=== PATIENT | female | born 1975 | race Caucasian/White ===

== ENCOUNTER 2022-12-26 08:20 | Inpatient (IN) | payer SELFPAY ==
[2022-12-26] VITALS (13 sets, daily range): BP systolic 100–136; BP diastolic 41–72; PULSE 69–91; RESP 15–18; TEMP 36.9–38.1; O2SAT 91–98; BMI 22.6
--- NOTE | 2022-12-26 09:00 | ED_ITS ---
HPI - Female Genitourinary General: Chief complaint: Urogenital-Female Stated complaint: kidney problems Time Seen by Provider: 12/26/22 09:00 History of Present Illness: 47-year-old lady without significant past medical history presented to the emergency department for flank pain and abdominal pain with nausea and vomiting as well as fevers. Onset of symptoms approximately 3 days ago and presented to outside ER last night diagnosed with pyelonephritis. Patient denies urinary s ymptoms however I guess urine was concerning for urinary tract infection with leukocytosis. Somewhat improved with ED treatment and given antibiotics. Despite this symptoms have worsened. No other specific changes in health, exacerbating, or alleviating factors identified. Onset (ago): day(s) Location of symptoms: low back and flank Severity scale (1-10): 8 Associated symptoms: Reports fevers/chills, nausea and other; Deny vaginal bleeding or vaginal discharge Date of Last Menstrual Period: 11/26/22 Review of Systems General: Reports: 10 or more systems reviewed and unremarkable except in HPI and below GI: Reports: nausea : Denies: vaginal discharge [facility] ED PFSH: Medical History Chronic neck pain Surgical History H/O: hysterectomy Family History Mother CAD (coronary artery disease) Father Emphysema lung Social History Smoking and tobacco status: current every day smoker Alcohol intake: never Substance/Drug Use: current Substance/Drug use type: Marijuana Female Reproductive History: Date of last menstrual period: 11/26/22 Physical Exam Const: COMMON NORMALS: alert GENERAL APPEARANCE: cooperative and well developed HENMT: COMMON NORMALS: normocephalic and atraumatic HEAD & SCALP: normocephalic and atraumatic Eye: COMMON NORMALS: conjunctivae normal CONJUNCTIVA: Yes conjunctivae normal SCLERA: sclerae normal Neck/C-Spine: COMMON NORMALS: supple GENERAL: Yes trachea midline Resp: COMMON NORMALS: normal respiratory effort EFFORT & INSPECTION: Yes able to speak in complete sentences Cardio: COMMON NORMALS: regular rate and regular rhythm RATE: regular rate RHYTHM: regular rhythm GI: COMMON NORMALS: Soft to palpation PALPATION: Yes Soft to palpation, Yes Tenderness to palpation present (GI), No Guarding due to palpation present (GI) and No Rigid due to palpation : SPECULUM EXAM - VAGINA: No vaginal bleeding OB/EXTERNAL & SPECULUM: No vaginal bleeding Extremity: GENERAL: Yes normal exam except as noted and No edema Neuro: COMMON NORMALS: moves all extremities SENSORIUM/ORIENTATION: Yes alert and No Orientation impaired Psych: COMMON NORMALS: mental status grossly normal and Normal thought process present THOUGHT PROCESS: Normal thought process present Course Vital Signs: Vital signs: Vital Signs Temperature 98.4 F 12/28/22 12:24 Pulse Rate 59 L 12/28/22 12:24 Respiratory Rate 18 12/28/22 12:24 Blood Pressure 114/72 12/28/22 12:24 Pulse Oximetry 98 12/28/22 12:24 Oxygen Delivery Me thod Room Air 12/28/22 11:16 MDM - Female Medical Decision Making 47-year-old lady with prior diagnosis of pyelonephritis presenting with worsening symptoms. Somewhat ill and uncomfortable on exam however nontoxic. Abdominal tenderness in the right lower quadrant and flank without evidence of acute surgical abdomen. Labs with leukocytosis, microcytic anemia. Metabolic panel with preserved renal function. Urinalysis pending at time of admission. Given abdominal exam imaging is appropriate. Consistent with pyelonephritis. Incidental findings noted. Treated with analgesia, antiemetic, fluids, antibiotics. Mild improvement however still clinically has moderate to severe pyelonephritis and requires inpatient admission for failed outpatient therapy. The results of ED evaluation were discussed with the patient including plan for admission due to requirement for level of care not available if discharged to prevent significant worsening/deterioration. Patient agreeable with plan. Discussed with hospitalist service who was agreeable to admit patient. Medical Records I reviewed the patient's medical records. Lab Data I reviewed the patient's lab results. 12/28/22 05:07 12/28/22 05:07 Laboratory Results WBC 22.9 10^3/uL (4.0-10.0) H 12/26/22 09:07 RBC 5.24 10^6/uL (4.1-5.3) 12/26/22 09:07 Hgb 10.9 g/dL (11.5-15.3) L 12/26/22 09:07 Hct 34.1 % (37.0-47.0) L 12/26/22 09:07 MCV 65.1 fl (81-99) L 12/26/22 09:07 MCH 20.8 pg (28.0-34.0) L 12/26/22 09:07 MCHC 32.0 g/dL (30.0-36.0) 12/26/22 09:07 RDW 14.5 % (12.1-15.1) 12/26/22 09:07 Plt Count 364 10^3/cmm (130-400) 12/26/22 09:07 MPV 9.9 fL (7.4-10.4) 12/26/22 09:07 Neut % (Auto) 86.1 % 12/26/22 09:07 Lymph % (Auto) 5.2 % 12/26/22 09:07 [place] % (Auto) 7.3 % 12/26/22 09:07 Eos % (Auto) 0.0 % 12/26/22 09:07 Baso % (Auto) 0.4 % 12/26/22 09:07 Neut # (Auto) 19.72 10^3/uL (1.8-7.7) H 12/26/22 09:07 Lymph # (Auto) 1.2 10^3/uL (0.8-4.8) 12/26/22 09:07 [place] # (Auto) 1.7 10^3/uL (0.2-0.9) H 12/26/22 09:07 Eos # (Auto) 0.0 10^3/uL (0.0-0.8) 12/26/22 09:07 Baso # (Auto) 0.1 10^3/uL (0.0-0.1) 12/26/22 09:07 Nucleated RBC % (auto) 0 % 12/26/22 09:07 Nucleated RBCs # 0.0 /100WBC 12/26/22 09:07 Sodium 136 mmol/L (136-145) 12/26/22 09:07 Potassium 3.7 mmol/L (3.5-5.1) 12/26/22 09:07 Chloride 105 mmol/L (98-107) 12/26/22 09:07 Carbon Dioxide 19 mmol/L (22-29) L 12/26/22 09:07 Anion Gap 15.7 (5-19) 12/26/22 09:07 BUN 11 mg/dL (6-20) 12/26/22 09:07 Creatinine 0.6 mg/dL (0.5-0.9) 12/26/22 09:07 GFR Calculation 107.6 mL/min (90-130) 12/26/22 09:07 Glucose 109 mg/dL (65-115) 12/26/22 09:07 Calculated Osmolality 282 mOsm/kg (285-295) L 12/26/22 09:07 Lactic Acid 0.8 mmol/L (0.5-2.2) 12/26/22 09:07 Calcium 8.2 mg/dL (8.5-10.5) L 12/26/22 09:07 Total Bilirubin 0.5 mg/dL (0.15-1.2) 12/26/22 09:07 AST 10 U/L (0-32) 12/26/22 09:07 ALT 12 U/L (0-33) 12/26/22 09:07 Alkaline Phosphatase 80 U/L (35-105) 12/26/22 09:07 C-Reactive Protein 111.7 mg/L (0.0-4.9) H 12/26/22 09:07 Total Protein 6.7 g/dL (6.6-8.7) 12/26/22 09:07 Albumin 3.9 g/dL (3.5-5.2) 12/26/22 09:07 Globulin 2.8 g/dL (1.3-4.6) 12/26/22 09:07 Procalcitonin 0.10 ng/mL (0-0.5) 12/26/22 09:07 TSH 0.60 uIU/mL (0.27-4.20) 12/26/22 09:07 HCG, Qual Negative (Negative) 12/26/22 09:07 Urine Color Yellow (Yellow) 12/26/22 11:55 Urine Appearance Hazy (CLEAR) A 12/26/22 11:55 Urine pH 5 (5-7) 12/26/22 11:55 Ur Specific [place] 1.005 (1.005-1.030) 12/26/22 11:55 Urine Protein Trace (Negative) 12/26/22 11:55 Urine Glucose (UA) Norm (Normal) 12/26/22 11:55 Urine Ketones 2+ (Negative) H 12/26/22 11:55 Urine Blood 2+ (Negative) H 12/26/22 11:55 Urine Nitrate Negative (Negative) 12/26/22 11:55 Urine Bilirubin Neg (Negative) 12/26/22 11:55 Urine Urobilinogen Norm mg/dL (Negative) 12/26/22 11:55 Ur Leukocyte Esterase Trace (Negative) H 12/26/22 11:55 Urine RBC 5-10 /hpf (0-2) H 12/26/22 11:55 Urine WBC 5-10 /hpf (0-5) H 12/26/22 11:55 Ur Squamous Epith Cells 25-40 /hpf (0-5) H 12/26/22 11:55 Amorphous Sediment Not Reportable 12/26/22 11:55 Urine Bacteria Trace /hpf (NONE) 12/26/22 11:55 Urine Mucus 1+ /hpf 12/26/22 11:55 Discharge Plan Discharge Patient Disposition: Placed in Observation Admit Provider: Haja Melendrez Clinical Impression: Pyelonephritis Discharge Diet: Cardiac Discharge Activity: Resume usual activity Coding Level of Care Code ED Anatomic Pathologist for Sylvester Preston
--- NOTE | 2022-12-26 09:35 | CT_ITS ---
WS: [id number] CT ABDOMEN PELVIS TECHNIQUE: Contrast-enhanced CT of the abdomen and pelvis with coronal and sagittal reformatted image s. CLINICAL INFORMATION: RLQ/flank pain COMPARISON: None. DLP: 402.[address] scans at [facility] use at least one of these dose optimization techniques: automated e xposure control; mA and/or kV adjustment per patient size (includes targeted exams where dose is matc hed to clinical indication); or iterative reconstruction. FINDINGS: Hepatomegaly. Portal vein and splenic vein are patent. Normal spleen. Normal GE junction. Lung bases are well aerated. Normal pancreatic parenchymal enhancement. Normal caliber abdominal aorta. Mild aortic calcification. Adrenal glands are normal. Diffuse patchy heterogeneous enhancement involving the right kidney suspi cious for pyelonephritis. Renal pelvis urothelial enhancement. Recommend correlation for UTI. Peripheral enhancing right corpus luteum cyst measuring 2.5 x 2.2 cm. Left ovarian cyst measuring 2.8 x 2.3 cm. Prominent myometrial enhancement is likely physiologic. Thickening of the endometrium like ly physiologic in a patient of this age. Small amount of free fluid in the cul-de-sac. Unilateral right L5-S1 pars defects. IMPRESSION: 1. Heterogeneous right renal parenchymal enhancement suspicious for pyelonephritis. Correlation for UTI. 2. Peripheral enhancing right corpus luteum cyst and simple appearing left ovarian cyst described ab ove with a small amount of free fluid in the cul-de-sac. 3. Prominent myometrial enhancement with endometrial thickening likely physiologic in a patient this age. 4. Unilateral chronic right pars defect. No significant anterolisthesis.
[2022-12-26] MEDS: ondansetron 2 mg/ML SDV 2 mL 4 MG IVP ×2 (09:37→19:16)
[2022-12-26] MEDS: morphine 4 mg/mL SDV 1 mL IVP (09:37)
[2022-12-26] MEDS: sodium chloride 0.9% 1,000 ML 999 ML IV (09:38)
[2022-12-26 09:48] LABS: Basophils # 0.1 10^3/uL (0.0-0.1); Basophils % 0.4 %; Hematocrit 34.1 % (37.0-47.0); Hemoglobin 10.9 g/dL (11.5-15.3); Lymphocytes # 1.2 10^3/uL (0.8-4.8); Lymphocytes % 5.2 %; Mean Corpuscular Hemoglobin 20.8 pg (28.0-34.0); Mean Corpuscular Volume 65.1 fl (81-99); Mean Platelet Volume 9.9 fL (7.4-10.4); Monocytes # 1.7 10^3/uL (0.2-0.9); Monocytes % 7.3 %; Neutrophils # 19.72 10^3/uL (1.8-7.7); Neutrophils % 86.1 %; Nucleated Red Blood Cells % 0 %; Platelet Count 364 10^3/cmm (130-400); Red Blood Count 5.24 10^6/uL (4.1-5.3); Red Cell Distribution Width 14.5 % (12.1-15.1); White Blood Count 22.9 10^3/uL (4.0-10.0)
[2022-12-26 10:07] LABS: Lactic Sepsis W/Reflex 0.8 mmol/L (0.5-2.2)
[2022-12-26 10:13] LABS: Alanine Aminotransferase 12 U/L (0-33); Albumin Level 3.9 g/dL (3.5-5.2); Alkaline Phosphatase 80 U/L (35-105); Anion Gap 15.7 (5-19); Aspartate Amino Transferase 10 U/L (0-32); Blood Urea Nitrogen 11 mg/dL (6-20); Calcium 8.2 mg/dL (8.5-10.5); Carbon Dioxide 19 mmol/L (22-29); Chloride 105 mmol/L (98-107); Globulin 2.8 g/dL (1.3-4.6); Glomerular Filtration Rate 107.6 mL/min (90-130); Glucose 109 mg/dL (65-115); Osmolality Calculated 282 mOsm/kg (285-295); Potassium 3.7 mmol/L (3.5-5.1); Sodium 136 mmol/L (136-145); Total Bilirubin 0.5 mg/dL (0.15-1.2); Total Protein 6.7 g/dL (6.6-8.7)
[2022-12-26 10:28] LABS: HCG, Serum Qual Negative (Negative)
[2022-12-26] MEDS: iohexol 350 mg/mL 500 mL Btl (per mL) IV (10:39)
[2022-12-26 12:20] LABS: Add Urine Microscopic? YES; Bilirubin Urine Neg (Negative); Blood Urine 2+ (Negative); Glucose Urine UA Norm (Normal); Ketones Urine 2+ (Negative); Leukocyte Esterase Urine Trace (Negative); Nitrate Urine Negative (Negative); Protein Urine Trace (Negative); Specific Gravity, Urine 1.005 (1.005-1.030); Urine Appearance Hazy (CLEAR); Urine Color Yellow (Yellow); Urobilinogen Urine Norm (Negative); pH Urine 5 (5-7)
[2022-12-26 12:21] LABS: Bacteria Urine TRACE /hpf; Squamous Epithelial Cell Urine 25-40 /hpf (0-5)
[2022-12-26 12:22] LABS: Add Urine Culture? No; Mucus Urine 1+ /hpf
[2022-12-26] MEDS: cefTRIAXone 1,000 MG in sodium chloride 0.9% (plus) 50 ML 100 MG IV (12:28)
--- NOTE | 2022-12-26 13:00 | PM.HP ---
Providers/Chief Complaint Chief Complaint: kidney problems History of Present Illness Mireya Veliz is a 47 year old female with a past medical history of chronic neck pain, who presents to [facility] due to fatigue, malaise, fevers, chills, nausea, right-sided flank pain for the last 48 hours. Patient tells me that about 48 hours ago she started to develop dysuria, increased urinary frequency, she was treating herself with Azole for concerns for UTI, no vaginal discharge, denies being , is sexually active with her , denies any vaginal lesions, she reports worsening of her symptomatology with fevers, chills, fatigue, malaise, so she went to [facility], received Zofran, fluids and Bactrim for concerns for UTI. However she continues to have significant symptomatology, now developing right-sided flank pain, in the emergency room she was diagnosed with a UTI with right-sided pyelonephritis, hospitalist team was called for admission Review of Systems Const: Reports: fever(s), chills, body aches, change in appetite, fatigue and malaise Eyes: Denies: change in vision Card: Denies: chest pain Resp: Denies: dyspnea GI: Denies: abdominal pain : Reports: flank pain, dysuria and urinary frequency Musc: Reports: neck pain Skin/Breast: Denies: rash Neuro: Denies: headache(s) Medications/Allergies Home Medications Medication Instructions Recorded Confirmed Last Taken Type naproxen 500 mg tablet 500 mg PO BID 10 days #20 tabs 01/14/22 12/26/22 Unknown Rx sulfamethoxazole 800 1 tab PO BID 7 days #14 tabs 01/14/22 12/26/22 Unknown Rx mg-trimethoprim 160 mg tablet (Bactrim DS) Allergies Allergy/AdvReac Type Severity Reaction Status Date / Time No Known Allergies Allergy Verified 12/26/22 08:54 PFSH Acute PFSH: Medical History (Updated 12/26/22 @ 13:03 by Haja Melendrez MD) Chronic neck pain Surgical History (Updated 12/26/22 @ 13:03 by Haja Melendrez MD) H/O: hysterectomy Family History (Updated 12/26/22 @ 13:04 by Haja Melendrez MD) Mother CAD (coronary artery disease) Father Emphysema lung Social History (Updated 12/26/22 @ 13:04 by Haja Melendrez MD) Smoking and tobacco status: current every day smoker Alcohol intake: never Substance/Drug Use: current Substance/Drug use type: Marijuana Female Reproductive History: Date of last menstrual period: 11/26/22 Vitals/I&O/Wt Last Vital Signs Temp 100.5 F H 12/26/22 09:45 Pulse 82 12/26/22 12:45 Resp 15 12/26/22 12:45 BP 108/45 12/26/22 12:45 Pulse Ox 98 12/26/22 12:45 O2 Del Method Room Air 12/26/22 08:52 12/25/22 12/26/22 12/26/22 22:59 06:59 14:59 Intake Total 1000 / 1000 Balance 1000 / 1000 Weight last 48 hrs Weight 58.06 kg Physical Exam Const: COMMON NORMALS: no acute distress and patient oriented x3 GENERAL APPEARANCE: cooperative, well kempt and well developed HENMT: COMMON NORMALS: normocephalic and Normal external nose present HEAD & SCALP: normocephalic FACE & SINUS: normal facial exam NOSE: Normal external nose present Eye: COMMON NORMALS: Equal, round and reactive pupils present, EOMs intact bilaterally, conjunctivae normal and no scleral icterus CONJUNCTIVA: Yes conjunctivae normal PUPIL: Yes Equal, round and reactive pupils present Neck/C-Spine: COMMON NORMALS: full ROM, no lymphadenopathy, no JVD and No carotid bruits Lymph: LYMPHATIC: no lymphadenopathy noted Chest: COMMONS NORMALS: normal inspection of the chest Resp: COMMON NORMALS: normal respiratory effort, No retractions, No use of accessory muscles and clear to auscultation bilaterally AUSCULTATION: clear to auscultation bilaterally Cardio: COMMON NORMALS: regular rate, regular rhythm, S1 normal heart sound present, S2 normal heart sound present, No murmurs present (Cardio) and Peripheral pulses 2+ throughout RATE: regular rate RHYTHM: regular rhythm HEART SOUNDS: S1 normal heart sound present and S2 normal heart sound present PERIPHERAL PULSES: Peripheral pulses 2+ throughout GI: COMMON NORMALS: Normal to inspection, nondistended, normoactive bowel sounds present, Soft to palpation and non-tender PALPATION: Yes Soft to palpation Back/Pelvis: OTHER: Bilateral CVA tenderness Extremity: COMMON NORMALS: normal to inspection, full ROM, no calf tenderness and no pedal edema Neuro: COMMON NORMALS: patient oriented x3, CN's II-XII intact bilaterally, moves all extremities, no focal motor deficits and no sensory deficits noted Psych: COMMON NORMALS: mental status grossly normal, Normal thought process present, cooperative and speech normal APPEARANCE: Yes well kempt SPEECH: Yes normal speech THOUGHT PROCESS: Normal thought process present Skin: COMMON NORMALS: turgor normal and no jaundice GENERAL SKIN EXAM: turgor normal Data 12/26/22 09:07 12/26/22 09:07 Micro: Microbiology 12/26/22 09:17 Blood Culture - Preliminary Blood SPECIMEN COLLECTED 12/26/22 09:07 Blood Culture - Preliminary Blood SPECIMEN COLLECTED A&P Assessment and plan (1) Pyelonephritis: Plan Pyelonephritis -IV fluids -Zofran for nausea -Morphine for pain control -Continue Rocephin -Follow blood cultures, urine cultures -Pro-Hector, CRP -Full code -Lovenox for DVT prophylaxis Attestations Medical Necessity Statement*: Patient requires hospitalization, inpatient, greater than 2 midnights for pyelonephritis Diagnoses Pyelonephritis N12
[2022-12-26 14:02] LABS: C Reactive Protein 111.7 mg/L (0.0-4.9)
[2022-12-26] MEDS: sodium chloride 0.9% 1,000 ML 100 ML IV ×2 (14:06→23:27)
[2022-12-26] MEDS: enoxaparin 40 mg/0.4 mL Syringe SUBCUT (14:06)
[2022-12-26] MEDS: morphine 4 mg/mL SDV 1 mL 1 MG IVP ×2 (19:17→23:12)
[2022-12-27] VITALS (10 sets, daily range): BP systolic 97–133; BP diastolic 56–78; PULSE 66–103; RESP 15–18; TEMP 36.7–37.3; O2SAT 93–99
[2022-12-27] MEDS: ondansetron 2 mg/ML SDV 2 mL 4 MG IVP ×2 (03:15→14:02)
[2022-12-27] MEDS: morphine 4 mg/mL SDV 1 mL 1 MG IVP ×5 (03:15→20:40)
[2022-12-27 05:22] LABS: Basophils # 0.1 10^3/uL (0.0-0.1); Basophils % 0.7 %; Eosinophils # 0.2 10^3/uL (0.0-0.8); Eosinophils % 1.2 %; Hematocrit 30.3 % (37.0-47.0); Hemoglobin 9.6 g/dL (11.5-15.3); Lymphocytes # 1.7 10^3/uL (0.8-4.8); Lymphocytes % 11.7 %; Mean Corpuscular HGB Conc 31.7 g/dL (30.0-36.0); Mean Corpuscular Hemoglobin 21.1 pg (28.0-34.0); Mean Corpuscular Volume 66.7 fl (81-99); Mean Platelet Volume 10.3 fL (7.4-10.4); Monocytes # 1.5 10^3/uL (0.2-0.9); Monocytes % 10.6 %; Neutrophils # 10.99 10^3/uL (1.8-7.7); Neutrophils % 75.2 %; Nucleated Red Blood Cells % 0 %; Platelet Count 303 10^3/cmm (130-400); Red Blood Count 4.54 10^6/uL (4.1-5.3); Red Cell Distribution Width 14.7 % (12.1-15.1); White Blood Count 14.6 10^3/uL (4.0-10.0)
[2022-12-27 05:54] LABS: Blood Urea Nitrogen 7 mg/dL (6-20); Calcium 7.6 mg/dL (8.5-10.5); Carbon Dioxide 19 mmol/L (22-29); Chloride 106 mmol/L (98-107); Glomerular Filtration Rate 132.8 mL/min (90-130); Glucose 90 mg/dL (65-115); Osmolality Calculated 278 mOsm/kg (285-295); Sodium 135 mmol/L (136-145)
[2022-12-27] MEDS: pantoprazole DR 40 mg Tablet PO (07:47)
[2022-12-27] MEDS: acetaminophen 325 mg Tablet 650 MG PO ×2 (07:47→13:57)
[2022-12-27] MEDS: sodium chloride 0.9% 1,000 ML 100 ML IV (07:50)
[2022-12-27] MEDS: cefTRIAXone 1,000 MG in sodium chloride 0.9% (plus) 50 ML 100 MG IV (11:48)
[2022-12-27] MEDS: enoxaparin 40 mg/0.4 mL Syringe SUBCUT (14:02)
--- NOTE | 2022-12-27 18:01 | P.PN_ITS ---
Subjective Subjective: Patient was seen this morning, she tells me she feels a lot better, no nausea, vomiting, no fevers, no chills Vitals/I&O/Wt Last Vital Signs Temp 99 F 12/27/22 15:14 Pulse 66 12/27/22 15:14 Resp 15 12/27/22 16:32 BP 133/78 12/27/22 15:14 Pulse Ox 96 12/27/22 15:14 O2 Del Method Room Air 12/27/22 15:14 12/27/22 12/27/22 12/27/22 06:59 14:59 22:59 Intake Total 1055 / 2905 1848.333 / 1848.333 480 / 2328.333 Output Total 425 / 625 Balance 630 / 2280 1848.333 / 1848.333 480 / 2328.333 Weight last 48 hrs Weight 58.06 kg Physical Exam Const: COMMON NORMALS: no acute distress and patient oriented x3 Resp: COMMON NORMALS: normal respiratory effort, No retractions, No use of accessory muscles and clear to auscultation bilaterally AUSCULTATION: clear to auscultation bilaterally Cardio: COMMON NORMALS: regular rate, regular rhythm, S1 normal heart sound present and S2 normal heart sound present RATE: regular rate RHYTHM: regular rhythm HEART SOUNDS: S1 normal heart sound present and S2 normal heart sound present GI: COMMON NORMALS: Normal to inspection, nondistended, normoactive bowel sounds present and non-tender Extremity: COMMON NORMALS: no pedal edema Neuro: COMMON NORMALS: patient oriented x3 Psych: COMMON NORMALS: mental status grossly normal Data 12/27/22 04:47 12/27/22 04:47 Micro: Microbiology 12/26/22 09:17 Blood Culture - Preliminary Blood NEGATIVE TO DATE 12/26/22 09:07 Blood Culture - Preliminary Blood NEGATIVE TO DATE A&P Assessment and plan (1) Pyelonephritis: Plan Pyelonephritis -IV fluids -Zofran for nausea -Morphine for pain control -Continue Rocephin -Follow blood cultures, urine cultures -Pro-Hector, CRP -Full code -Lovenox for DVT prophylaxis Attestations Medical Necessity Statement*: Patient requires hospitalization for pyelonephritis, plan to continue Rocephin, de-escalate fluid therapy, broaden diet, up out of bed Coding Level of Care Code 13578 Moderate MDM includes number and complexity of problems actively addressed during encounter, amount and/or complexity of data reviewed/ordered and described risk of complication, morbidity or mortality of management as docume nted and High MDM includes number and complexity of problems actively addressed during encounter, amount and/or complexity of data reviewed/ordered and described risk of complication, morbidity or mortality of management as documented Diagnoses Pyelonephritis N12
[2022-12-27] MEDS: sodium chloride 0.9% 1,000 ML 50 ML IV (18:09)
[2022-12-27] MEDS: ibuprofen 800 mg tablet PO (19:34)
[2022-12-28] VITALS: BP 116/64; PULSE 63; RESP 17; TEMP 36.9; O2SAT 97
[2022-12-28 00:33] VITALS: RESP 16
[2022-12-28] MEDS: morphine 4 mg/mL SDV 1 mL 1 MG IVP (00:33)
[2022-12-28] MEDS: acetaminophen 325 mg Tablet 650 MG PO ×3 (01:02→12:15)
[2022-12-28] MEDS: ondansetron 2 mg/ML SDV 2 mL 4 MG IVP ×2 (01:02→12:12)
[2022-12-28 03:51] VITALS: BP 119/68; PULSE 60; RESP 16; TEMP 36.8; O2SAT 96
[2022-12-28 05:53] LABS: Basophils # 0.1 10^3/uL (0.0-0.1); Basophils % 0.7 %; Eosinophils # 0.3 10^3/uL (0.0-0.8); Eosinophils % 2.9 %; Hematocrit 28.4 % (37.0-47.0); Hemoglobin 9.3 g/dL (11.5-15.3); Lymphocytes # 1.7 10^3/uL (0.8-4.8); Lymphocytes % 17.8 %; Mean Corpuscular HGB Conc 32.7 g/dL (30.0-36.0); Mean Corpuscular Hemoglobin 21.4 pg (28.0-34.0); Mean Corpuscular Volume 65.4 fl (81-99); Mean Platelet Volume 9.8 fL (7.4-10.4); Monocytes # 1.1 10^3/uL (0.2-0.9); Monocytes % 11.9 %; Neutrophils # 6.31 10^3/uL (1.8-7.7); Neutrophils % 66.3 %; Nucleated Red Blood Cells % 0 %; Platelet Count 309 10^3/cmm (130-400); Red Blood Count 4.34 10^6/uL (4.1-5.3); Red Cell Distribution Width 14.6 % (12.1-15.1); White Blood Count 9.5 10^3/uL (4.0-10.0)
[2022-12-28 06:15] LABS: Anion Gap 11.9 (5-19); Blood Urea Nitrogen 8 mg/dL (6-20); Calcium 7.7 mg/dL (8.5-10.5); Carbon Dioxide 21 mmol/L (22-29); Chloride 107 mmol/L (98-107); Glomerular Filtration Rate 132.8 mL/min (90-130); Glucose 84 mg/dL (65-115); Osmolality Calculated 280 mOsm/kg (285-295); Potassium 3.9 mmol/L (3.5-5.1); Sodium 136 mmol/L (136-145)
[2022-12-28 08:04] VITALS: BP 123/78; PULSE 65; RESP 18; TEMP 36.8; O2SAT 97
[2022-12-28] MEDS: pantoprazole DR 40 mg Tablet PO (08:37)
[2022-12-28 11:16] VITALS: BP 114/72; PULSE 59; RESP 18; TEMP 36.9; O2SAT 98
--- NOTE | 2022-12-28 11:50 | P.DS_ITS ---
Discharge Providers Date of Admission: 12/26/22 12:15 Date of Discharge: December 28, 2022 Attending Provider at Admission: Haja Melendrez MD Attending Provider at Discharge: Haja Melendrez MD Diagnoses at Discharge Discharge Diagnosis (1) Pyelonephritis: Status: Acute Reason for Visit Reason for Visit: kidney problems Hospital Course Hospital Course Mireya Veliz is a 47 year old female with a past medical history of chronic neck pain, who presents to [facility] due to fatigue, malaise, fevers, chills, nausea, right-sided flank pain for the last 48 hours.? Patient tells me that about 48 hours ago she started to develop dysuria, increased urinary frequency, she was treating herself with Azole for concerns for UTI, no vaginal discharge, denies being , is sexually active with her , denies any vaginal lesions, she reports worsening of her symptomatology with fevers, chills, fatigue, malaise, so she went to [facility], received Zofran, fluids and Bactrim for concerns for UTI.? However she continues to have significant symptomatology, now developing right-sided flank pain, in the emergency room she was diagnosed with a UTI with right-sided pyelonephritis, hospitalist team was called for admission Patient required hospitalization for pyelonephritis, required iv abx, remained afebrile, blood cultures remain negative, overall clinically improved, will discharge 5 remaining days of antibiotics, zofran for vomiting, tramadol to be used sparingly for pain Physical Exam Const: COMMON NORMALS: no acute distress and patient oriented x3 Resp: COMMON NORMALS: normal respiratory effort, No retractions, No use of accessory muscles and clear to auscultation bilaterally AUSCULTATION: clear to auscultation bilaterally Cardio: COMMON NORMALS: regular rate, regular rhythm, S1 normal heart sound present and S2 normal heart sound present RATE: regular rate RHYTHM: regular rhythm HEART SOUNDS: S1 normal heart sound present and S2 normal heart sound present GI: COMMON NORMALS: Normal to inspection, nondistended, normoactive bowel sounds present and non-tender Extremity: COMMON NORMALS: no pedal edema Neuro: COMMON NORMALS: patient oriented x3 Psych: COMMON NORMALS: mental status grossly normal Discharge Data Studies Completed and Pending Completed Studies During Hospitalization Category Date Time Status CT abdomen pelvis w con* [id number] Stat Cat Scan 12/26/22 09:35 Completed Pending at discharge Category Date Time Status Basic Metabolic Panel AM LABS Lab 12/29/22 04:00 Ordered Blood Culture Stat Lab 12/26/22 09:17 Results Complete Blood Count w/Auto AM LABS Lab 12/29/22 04:00 Ordered Laboratory Results WBC 9.5 10^3/uL (4.0-10.0) 12/28/22 05:07 RBC 4.34 10^6/uL (4.1-5.3) 12/28/22 05:07 Hgb 9.3 g/dL (11.5-15.3) L 12/28/22 05:07 Hct 28.4 % (37.0-47.0) L 12/28/22 05:07 MCV 65.4 fl (81-99) L 12/28/22 05:07 MCH 21.4 pg (28.0-34.0) L 12/28/22 05:07 MCHC 32.7 g/dL (30.0-36.0) 12/28/22 05:07 RDW 14.6 % (12.1-15.1) 12/28/22 05:07 Plt Count 309 10^3/cmm (130-400) 12/28/22 05:07 MPV 9.8 fL (7.4-10.4) 12/28/22 05:07 Neut % (Auto) 66.3 % 12/28/22 05:07 Lymph % (Auto) 17.8 % 12/28/22 05:07 [place] % (Auto) 11.9 % 12/28/22 05:07 Eos % (Auto) 2.9 % 12/28/22 05:07 Baso % (Auto) 0.7 % 12/28/22 05:07 Neut # (Auto) 6.31 10^3/uL (1.8-7.7) 12/28/22 05:07 Lymph # (Auto) 1.7 10^3/uL (0.8-4.8) 12/28/22 05:07 [place] # (Auto) 1.1 10^3/uL (0.2-0.9) H 12/28/22 05:07 Eos # (Auto) 0.3 10^3/uL (0.0-0.8) 12/28/22 05:07 Baso # (Auto) 0.1 10^3/uL (0.0-0.1) 12/28/22 05:07 Nucleated RBC % (auto) 0 % 12/28/22 05:07 Nucleated RBCs # 0.0 /100WBC 12/28/22 05:07 Sodium 136 mmol/L (136-145) 12/28/22 05:07 Potassium 3.9 mmol/L (3.5-5.1) 12/28/22 05:07 Chloride 107 mmol/L (98-107) 12/28/22 05:07 Carbon Dioxide 21 mmol/L (22-29) L 12/28/22 05:07 Anion Gap 11.9 (5-19) 12/28/22 05:07 BUN 8 mg/dL (6-20) 12/28/22 05:07 Creatinine 0.5 mg/dL (0.5-0.9) 12/28/22 05:07 GFR Calculation 132.8 mL/min (90-130) H 12/28/22 05:07 Glucose 84 mg/dL (65-115) 12/28/22 05:07 Calculated Osmolality 280 mOsm/kg (285-295) L 12/28/22 05:07 Lactic Acid 0.8 mmol/L (0.5-2.2) 12/26/22 09:07 Calcium 7.7 mg/dL (8.5-10.5) L 12/28/22 05:07 Total Bilirubin 0.5 mg/dL (0.15-1.2) 12/26/22 09:07 AST 10 U/L (0-32) 12/26/22 09:07 ALT 12 U/L (0-33) 12/26/22 09:07 Alkaline Phosphatase 80 U/L (35-105) 12/26/22 09:07 C-Reactive Protein 111.7 mg/L (0.0-4.9) H 12/26/22 09:07 Total Protein 6.7 g/dL (6.6-8.7) 12/26/22 09:07 Albumin 3.9 g/dL (3.5-5.2) 12/26/22 09:07 Globulin 2.8 g/dL (1.3-4.6) 12/26/22 09:07 Procalcitonin 0.10 ng/mL (0-0.5) 12/26/22 09:07 TSH 0.60 uIU/mL (0.27-4.20) 12/26/22 09:07 HCG, Qual Negative (Negative) 12/26/22 09:07 Urine Color Yellow (Yellow) 12/26/22 11:55 Urine Appearance Hazy (CLEAR) A 12/26/22 11:55 Urine pH 5 (5-7) 12/26/22 11:55 Ur Specific [place] 1.005 (1.005-1.030) 12/26/22 11:55 Urine Protein Trace (Negative) 12/26/22 11:55 Urine Glucose (UA) Norm (Normal) 12/26/22 11:55 Urine Ketones 2+ (Negative) H 12/26/22 11:55 Urine Blood 2+ (Negative) H 12/26/22 11:55 Urine Nitrate Negative (Negative) 12/26/22 11:55 Urine Bilirubin Neg (Negative) 12/26/22 11:55 Urine Urobilinogen Norm mg/dL (Negative) 12/26/22 11:55 Ur Leukocyte Esterase Trace (Negative) H 12/26/22 11:55 Urine RBC 5-10 /hpf (0-2) H 12/26/22 11:55 Urine WBC 5-10 /hpf (0-5) H 12/26/22 11:55 Ur Squamous Epith Cells 25-40 /hpf (0-5) H 12/26/22 11:55 Amorphous Sediment Not Reportable 12/26/22 11:55 Urine Bacteria Trace /hpf (NONE) 12/26/22 11:55 Urine Mucus 1+ /hpf 12/26/22 11:55 Vitals Last Vital Signs Temp 98.4 F 12/28/22 11:16 Pulse 59 L 12/28/22 11:16 Resp 18 12/28/22 11:16 BP 114/72 12/28/22 11:16 Pulse Ox 98 12/28/22 11:16 O2 Del Method Room Air 12/28/22 11:16 Discharge Plan Discharge Patient Disposition: Home Condition: Stable Prescriptions: New tramadol 50 mg tablet 50 mg PO Q8H PRN (Reason: pain) 5 Days Qty: 15 0RF ondansetron 4 mg tablet,disintegrating 4 mg PO Q8H PRN (Reason: nausea and vomiting) 5 Days Qty: 15 0RF levofloxacin 750 mg tablet 750 mg PO DAILY 5 Days Qty: 5 0RF Discontinued sulfamethoxazole-trimethoprim [Bactrim DS] 800-160 mg tablet 1 tab PO BID 7 Days Qty: 14 0RF naproxen 500 mg tablet 500 mg PO BID 10 Days Qty: 20 0RF Discharge Orders: Discharge Order (Routine); Ordered 12/28/22 Ordered By: Haja Melendrez Referrals: Anabela Rueda FNP-C [Referring] - Discharge Diet: Cardiac Discharge Activity: Resume usual activity Patient Instructions: Opioid Safety Activity Restrictions/Additional Instructions: -please hydrate well - monitor for fevers -see primary care in 1 weeks Discharge Attestations Time Spent in Discharge Care*: greater than 30 min Quality Metrics Clinical Quality Measures [ No reported AMI, CVA or VTE this stay] Coding Level of Care Code 82297 Total time (in minutes) for Discharge: 45 Diagnoses Pyelonephritis N12
[2022-12-28] MEDS: cefTRIAXone 1,000 MG in sodium chloride 0.9% (plus) 50 ML 100 MG IV (11:55)
[2022-12-28 12:24] VITALS: BP 114/72; PULSE 59; RESP 18; TEMP 36.9; O2SAT 98
== END 2022-12-28 13:19 | disposition home or self-care (01) | DRG 690 ==
LOC: ER 12:14 → MEDSURG 13:08
PROVIDERS: Admitting Provider Family Medicine; Emergency Provider Emergency Medicine; Visit Provider Family Medicine
DX: N12 Tubulo-interstitial nephritis, not specified as acute or chronic (principal); N39.0 Urinary tract infection, site not specified
CPT/HCPCS: 36415; 74177; 80048; 80053; 81001; 83605; 84145; 84443; 84703; 85025; 86140; 87040; 96372; 96374; 96375; 99285; J0696; J1650; J2270; J2405; J7030; Q9967